=== PATIENT | female | born 1960 | race Caucasian/White ===

== ENCOUNTER → 2023-05-31 | Outpatient (CLI) | payer OTHER, MEDICAID, SELFPAY ==
--- NOTE | 2023-05-31 | LES_PTH ---
PATIENT: SHIRIN MORFIN [facility] U#:[id number] AGE/SX: 62/F ROOM: RE05/31/[address]: MANUELITO MORRIS MD : 1960 BED: DIS: 05/31/2023 SPEC #: [id number] RECD: 05/31/23 12:37 STATUS: JACINTO RESeble #: [id number] NADIYA: 05/31/23 00:[address]: MANUELITO MORRIS DEPT: SURGICAL PATHOLOGY RECD BY: Kyle Macedo ENTERED: 06/03/23 09:31 SP TYPE: Lesion OTHR DR: MARY JO Croft Tissues: Mouth, NOS Procedures: Special Stain Group I Surgery Specimen Level IV GMS Stain (control) HEADER OPERATION: Incisional punch biopsy of right gingival tissue PRE-OP DIAGNOSIS: White patch with ulcer and pain, concern for malignancy TISSUE SUBMITTED: Right gingival tissue near trigone area MICROSCOPIC DIAGNOSIS Right gingival tissue near trigone area, incisional punch biopsy: Fragments of squamous mucosa with extensive hyperkeratosis and hypergranulosis. Negative for malignancy. See comment. LORRAINE:gerardo 06/04/2023 COMMENT Organisms consistent with bacteria are noted in the superficial epithelial layers. Special stain for fungi is negative for organisms; matched control is appropriate. Clinical correlation and appropriate follow up are necessary. Case has been reviewed in consultation with Dr. Waldron who concurs with the above diagnosis. IDC:AM MICROSCOPIC DESCRIPTION Slides are reviewed. GROSS DESCRIPTION Received in fixative is one container labeled with the patient's name and designated lower right trigone. The specimen consists of two pieces of barrios mucosal tissue measuring in aggregate 0.4 x 0.3 x 0.1 cm. The entire specimen is submitted in one cassette. / LORRAINE:gerardo 06/03/2023 TC:5 CPT: 83955, 64891
== END | disposition home or self-care (01) ==
LOC: LABSPEC 12:52
PROVIDERS: PCP Physician Assistant; Referring Provider Dentist Oral and Maxillofacial Surgery; Visit Provider Dentist Oral and Maxillofacial Surgery
DX: K13.70 Unspecified lesions of oral mucosa (principal); Z87.891 Personal history of nicotine dependence; K06.8 Other specified disorders of gingiva and edentulous alveolar ridge
CPT/HCPCS: 88305; 88312